=== PATIENT | female | born 1970 | race Caucasian/White ===

== ENCOUNTER 2016-11-09 05:37 | Inpatient (IN) | payer BC ==
--- NOTE | 2016-11-08 20:45 | PREOPHP ---
DATE OF ADMISSION: 11/09/2016 She is to be admitted tomorrow, November 09, 2016 for a total abdominal hysterectomy. CHIEF COMPLAINT: Chronic pelvic pain, pelvic pressure. HISTORY OF PRESENT ILLNESS: This is a 46-year-old female, 3, para 3, has been complaining of pelvic pressure. She was found to have multiple uterine fibroids causing the problem. She is brought in for a total abdominal hysterectomy under a general anesthesia. The procedure was discussed with the patient in the office, and informed consent was obtained. The alternatives to treatment, the benefits from this operation, the risks and possible complications were discussed in detail. All of her questions were answered to her satisfaction, and she signed the appropriate surgical informed consent. The patient was made aware that she is not going to be able to conceive again and will not have a period ever again. PAST MEDICAL HISTORY: The patient denies any medical problems, including diabetes, hypertension, cardiovascular disease, liver disease, renal disease, neurological disease or thyroid problems. She had a left breast biopsy of a cyst several years ago. ALLERGIES: SHE HAS NO KNOWN ALLERGIES. REVIEW OF SYSTEMS: A 12-point review of systems is noncontributory. FAMILY HISTORY: Noncontributory. OBSTETRICAL HISTORY: The patient had 3 pregnancies and had 3 vaginal deliveries. PHYSICAL EXAMINATION: GENERAL APPEARANCE: Well developed and nourished, in no distress. Alert and oriented x3 with a height of 5 feet 4 inches and a weight of 200 pounds. The BMI is 35. VITAL SIGNS: Show the temperature to be 98, blood pressure 138/84, respirations 16 per minute, pulse is 72 per minute and regular. HEENT: Within normal limits. Pupils are PERRLA. NECK: Supple. The thyroid is not palpable. There is no lymphadenopathy. BREASTS: Show no masses or lumps. LUNGS: Are clear to percussion and auscultation. HEART: Normal sinus rhythm, without a murmur. ABDOMEN: Soft, obese, nontender. No organomegaly is present. PELVIC: Normal external genitalia. The vagina is normal. The cervix is normal, without lesions. The uterus is enlarged, with multiple fibroids and size of about 14 weeks, irregular, hard. Adnexa: No adnexal mass. LOWER EXTREMITIES: Examination within normal limits. NEUROLOGICAL: Examination is also normal. IMPRESSION: Multiple uterine fibroids, chronic pelvic pain. PLAN: Patient is to be admitted tomorrow, 11/09/2016 for a GLORIA. Dictated By: Ion Yin MD /lizz/maurizio /Document#: [id number] CC: Nate Elena MD;*End*
[2016-11-09] VITALS (23 sets, daily range): BP systolic 110–137; BP diastolic 60–86; PULSE 62–68; RESP 8–20; Ht 162.6 cm; Wt 92.7 kg
[~2016-11-09] VITALS: Ht 162.6 cm; Wt 92.7 kg
[2016-11-09] MEDS ORDERED: VASOPRESSIN 20 UNITS INJ ONE (06:55)
[2016-11-09] MEDS ORDERED: SODIUM CL BACTERIOSTATIC 30 ML INJ ONE (06:58)
[2016-11-09] MEDS ORDERED: METOCLOPRAMIDE 10 MG INJ IV PRN (07:30)
[2016-11-09] MEDS ORDERED: LABETALOL HCL 20MG INJ IV PRN (07:30)
[2016-11-09] MEDS ORDERED: OXYCODONE/ACETAMINOPHEN (5/325) TAB PO PRN ×3 (07:30→10:00)
[2016-11-09] MEDS ORDERED: HYDROmorphONE (0.2 MG/ML) 10ML SYG IV PRN ×2 (07:30)
[2016-11-09] MEDS ORDERED: ONDANSETRON 4 MG INJ IV PRN ×3 (07:30→10:00)
[2016-11-09] MEDS ORDERED: MIDAZOLAM 1 MG/ML 2 ML INJ IV PRN (07:30)
[2016-11-09] MEDS ORDERED: MEPERIDINE 25 MG INJ IV PRN (07:30)
[2016-11-09] MEDS ORDERED: EPHEDrine SULFATE 50 MG/5 ML SYG IV PRN (07:30)
[2016-11-09] MEDS ORDERED: DIPHENHYDRAMINE 50 MG INJ IV PRN ×2 (07:30→09:00)
[2016-11-09] MEDS ORDERED: hydrALAzine 20 MG INJ IV PRN (07:30)
[2016-11-09] MEDS ORDERED: FENTAnyl 50 MCG/ML VIAL IV PRN ×3 (07:30)
[2016-11-09] MEDS ORDERED: SUCCINYLCHOLINE CHLORIDE 100 MG/5 ML SYG IV ONE (07:40)
[2016-11-09] MEDS ORDERED: GLYCOPYRROLATE 0.4 MG INJ ONE ×3 (07:40→08:42)
[2016-11-09] MEDS ORDERED: LIDOCAINE 2% (SDV) 5 ML INJ ONE (07:40)
[2016-11-09] MEDS ORDERED: NEOSTIGMINE 3 MG/3 ML SYRINGE ONE ×2 (07:40→08:42)
[2016-11-09] MEDS ORDERED: PROPOFOL 20 ML ONE (07:40)
[2016-11-09] MEDS ORDERED: ROCURONIUM 50 MG INJ ONE (07:40)
[2016-11-09] MEDS ORDERED: BUPIVACAINE 0.5% (SDV) 30 ML INJ ONE (07:43)
[2016-11-09] MEDS ORDERED: CEFAZOLIN 1 GM INJ ONE (08:41)
[2016-11-09] MEDS ORDERED: METOCLOPRAMIDE 10 MG INJ ONE (08:42)
[2016-11-09] MEDS ORDERED: ONDANSETRON 4 MG INJ ONE (08:42)
[2016-11-09] MEDS ORDERED: HYDROmorphONE 1 MG/ML SYG IV PRN ×2 (09:00)
[2016-11-09] MEDS ORDERED: FENTAnyl 2MCG/ML-ROPIV 0.2% 100 ML BAG EPI SCH (09:00)
[2016-11-09] MEDS ORDERED: NALOXONE (0.4 MG/ML) INJ IV PRN ×2 (09:00→10:00)
[2016-11-09] MEDS ORDERED: morphine SULFATE/PF (10 MG/10 ML) INJ ONE (09:19)
[2016-11-09] MEDS: LACTATED RINGER'S 1,000 ML IV SCH ×2 (09:59→20:19)
[2016-11-09] MEDS ORDERED: CEFAZOLIN 1 GM/50 ML (PMX) 50 ML IVPB SCH (10:00)
[2016-11-09] MEDS ORDERED: IBUPROFEN 600 MG TAB PO PRN (10:00)
[2016-11-09] MEDS ORDERED: morphine SULFATE/PF (10 MG/10 ML) INJ EPI ONE (10:00)
--- NOTE | 2016-11-09 10:13 | QN ---
Documentation Comment Preoperative diagnosis: Multiple uterine fibroids wit pelvic pain. Postop diagnosis: same Surgeon: Dr Lara Sign Erector: Dr Elena Anesthesia: Dr Keys Complications : none EBL:150 c c Specimen:Uterus and fibroids AMIRA KELLOGG MD Nov 09, 2016 10:13
[2016-11-09] MEDS: HYDROmorphONE (0.2 MG/ML) 10ML SYG IV PRN ×2 (10:32→10:44)
[2016-11-09] MEDS ORDERED: ACETAMINOPHEN 1000MG/100ML IV 100 ML ONE (10:33)
[2016-11-09] MEDS: ACETAMINOPHEN 1000MG/100ML IV 100 ML IVPB SCH ×3 (10:41→22:31)
[2016-11-09] MEDS: CEFAZOLIN 1 GM/50 ML (PMX) 50 ML IVPB SCH ×2 (13:23→23:12)
--- NOTE | 2016-11-09 15:47 | OPR ---
DATE OF OPERATION: 11/09/2016 PREOPERATIVE DIAGNOSIS: Multiple uterine fibroids. Chronic pelvis pain. POSTOPERATIVE DIAGNOSIS: Same as above. OPERATIVE PROCEDURE: Total abdominal hysterectomy. SURGEON: Dr. Ion Yin. CAR DETAILER: Dr. Nate Elena ANESTHESIOLOGIST: Dr. Keys. ANESTHESIA: Epidural and general, bilaterally. ESTIMATED BLOOD LOSS: 150 cc. COMPLICATIONS: None. SPECIMENS: The uterus was sent to pathology. Pictures were taken for documentation. PROCEDURE AND FINDINGS: With the patient under general and epidural anesthesia, she was laid on the table in the dorsal recumbent position. Her abdomen was prepped with Chloraprep and the vagina with Betadine and a Lang catheter was inserted. Then she was draped in the usual sterile fashion. A Pfannenstiel incision was then carried through all the layers of the abdominal wall. Once in the abdomen, an enlarged uterus with several fibroids of benign aspect were found. The ovaries and tubes were normal. The hysterectomy then was carried out. It started with the LigaSure clamp on the round ligament and cut in it. Anteriorly the broad ligament was opened. The upper pedicle consisting of the tube utero-ovarian ligament was cauterized with a LigaSure and cut. Good hemostasis was obtained. The same was done on the contralateral side. The bladder was pushed away with a clean moist sponge stick until the endopelvic fascia could be seen anteriorly. Then it was impossible to proceed with the above operation given the lack of room, thus a myomectomy was planned and carried out. The fibroids were anteriorly and impeding the good dissection, were infiltrated with diluted vasopressin. Then they were removed from the body of the uterus. Then the hysterectomy was carried out in the usual manner by ligated both uterine pedicles. The cardinal ligaments were identified, clamped with straight Olivia clamps, cut, and sutured with 0 Vicryl also. Finally, the uterosacral ligaments were clamped with curved Olivia clamps, cut, and sutured with 0 Vicryl. The vagina was entered on the right side and the incision extended with scissors and the specimen removed and sent to pathology. The vagina was closed with [id number] sutures of 0 Vicryl, obtaining good hemostasis. The pelvis was profusely washed with warm saline. There were no apparent bleeders. The saline was suctioned out. All the packing was removed. The first count of sponges was correct. The abdomen was closed in layers starting with the peritoneum with a continuous stitch of 0 Chromic catgut. The fascia was closed with a continuous stitch of number 1 Vicryl. Finally, the edges of the skin were brought together with absorbable kathleen. Sterile pressure dressing was applied. The patient was taken to the recovery room, all her vital signs stable. EBL was 150 cc. Needle, sponge, and instrument count at the end of the procedure was correct twice. Dictated By: Ion Yin MD /lizz/ /Document#: [id number]
[2016-11-10] VITALS: BP 123/59; RESP 18
[2016-11-10] MEDS: ACETAMINOPHEN 1000MG/100ML IV 100 ML IVPB SCH ×5 (04:00→21:52)
[2016-11-10 04:02] VITALS: BP 122/67; RESP 18
[2016-11-10 05:27] LABS: BASOPHILS % 0.1 % (0.0-2.0); EOSINOPHILS % 0.3 % (0.0-7.0); HEMATOCRIT 37.3 % (37.0-47.0); HEMOGLOBIN 12.5 g/dl (12.0-16.0); LYMPHOCYTES % 26.4 % (15.0-51.0); MEAN CORPUSCULAR HEMOGLOBIN 28.8 pg (29.0-33.0); MEAN CORPUSCULAR HGB CONC 33.5 g/dl (32.0-37.0); MEAN CORPUSCULAR VOLUME 85.9 fl (82.0-101.0); MONOCYTE # 0.7 10^3/ul (0.3-0.9); MONOCYTES % 9.1 % (0.0-11.0); NEUTROPHIL # 4.8 10^3/ul (1.6-7.5); NEUTROPHILS % 63.8 % (39.0-77.0); PLATELET COUNT 269 10^3/UL (140-415); RED BLOOD COUNT 4.34 10^6/ul (4.20-5.40); RED CELL DISTRIBUTION WIDTH 13.8 % (11.5-14.5); WHITE BLOOD COUNT 7.6 10^3/ul (4.8-10.8)
[2016-11-10] MEDS: CEFAZOLIN 1 GM/50 ML (PMX) 50 ML IVPB SCH ×2 (05:36→05:39)
[2016-11-10] MEDS: LACTATED RINGER'S 1,000 ML IV SCH ×2 (05:36→15:21)
[2016-11-10 05:58] LABS: CALCIUM 9.1 mg/dl (8.4-10.2); CREATININE 0.8 mg/dl (0.44-1.00); POTASSIUM 4.2 mmol/L (3.5-5.1)
[2016-11-10] MEDS ORDERED: PANTOPRAZOLE 40 MG INJ IV SCH (06:00)
[2016-11-10 08:16] VITALS: BP 105/57; RESP 19
--- NOTE | 2016-11-10 09:02 | PN ---
Date/Time of Note Date/Time of Note DATE: 11/10/16 TIME: 08:58 Assessment/Plan VTE Prophylaxis VTE Prophylaxis Intervention: ambulation, anti-embolic stocking, LMWH Lines/Catheters IV Catheter Type (from Nrsg): Peripheral IV Urinary Cath still in place: No Assessment/Plan Assessment/Plan Encourage ambulation and start Lovenox to prevent DVT/PE Cont'd Hospitalization Reason: Iv pain meds Subjective 24 Hr Interval Summary Free Text/Dictation Doing well,good pain control.Sitting up in bed eating breakfast. Exam/Review of Systems Vital Signs Vitals Vital Signs Date Time Temp Pulse Resp B/P Pulse Ox O2 Delivery O2 Flow Rate FiO2 11/10/16 08:16 98.0 56 19 105/57 98 11/10/16 04:02 Room Air 11/09/16 20:15 2.0 Intake and Output 11/09/16 11/09/16 11/10/16 15:00 23:00 07:00 Intake Total 1700 ml 1900 ml 1800 ml Output Total 750 ml 1100 ml 1400 ml Balance 950 ml 800 ml 400 ml Results Result Diagram: 11/10/16 0426 11/10/16 0426 Results 24 hrs Laboratory Tests Test 11/10/16 04:26 White Blood Count 7.6 Red Blood Count 4.34 Hemoglobin 12.5 Hematocrit 37.3 Mean Corpuscular Volume 85.9 Mean Corpuscular Hemoglobin 28.8 L Mean Corpuscular Hemoglobin Concent 33.5 Red Cell Distribution Width 13.8 Platelet Count 269 Mean Platelet Volume 9.0 Neutrophils % 63.8 Lymphocytes % 26.4 Monocytes % 9.1 Eosinophils % 0.3 Basophils % 0.1 Nucleated Red Blood Cells % 0.0 Neutrophils # 4.8 Lymphocytes # 2.0 Monocytes # 0.7 Eosinophils # 0.0 Basophils # 0.0 Nucleated Red Blood Cells # 0.0 Sodium Level 137 Potassium Level 4.2 Chloride Level 103 Carbon Dioxide Level 30 Anion Gap 8 Blood Urea Nitrogen 13 Creatinine 0.80 Glucose Level 92 Calcium Level 9.1 Medications Medications Current Medications Hydromorphone HCl (Dilaudid) 0.2 mg Q2H PRN IV PAIN LEVEL 1-5; Start 11/09/16 at 09:00 Hydromorphone HCl (Dilaudid) 0.4 mg Q2H PRN IV PAIN LEVEL 6-10; Start 11/09/16 at 09:00 Diphenhydramine HCl (Benadryl) 25 mg Q4H PRN IV PRURITUS; Start 11/09/16 at 09: 00 Ondansetron HCl (Zofran Inj) 4 mg Q6H PRN IV NAUSEA AND/OR VOMITING Last administered on 11/09/16 20:18; Admin Dose 4 MG; Start 11/09/16 at 09:00 Naloxone HCl (Narcan) 0.2 mg Q2M PRN IV FOR RESP RATE 8 OR LESS; Start at 09:00 Naloxone HCl 0.1 mg 0.1 mg Q2M PRN IV FOR RESP RATE 8 OR LESS; Start 11/09/16 at 10:00; Stop 11/10/16 at 09:59 Lactated Ringer's (Lr) 1,000 ml @ 100 mls/hr Q10H IV Last administered on 11/10 05:36; Admin Dose 100 MLS/HR; Start 11/09/16 at 09:59 Acetaminophen (Tylenol Tab) 650 mg Q4H PRN PO PAIN LEVEL 1-5; Start 11/10/16 at 12:00 Ibuprofen (Motrin) 600 mg Q8H PRN PO PAIN AND OR ELEVATED TEMP; Start 11/09/16 at 10:00; Status Future hold Ondansetron HCl (Zofran Inj) 4 mg Q6H PRN IV NAUSEA AND/OR VOMITING Last administered on 11/09/16 13:24; Admin Dose 4 MG; Start 11/09/16 at 10:00 Oxycodone/ Acetaminophen 2 tab 2 tab Q4H PRN PO PAIN; Start 11/09/16 at 10:00 Acetaminophen (Ofirmev 1000mg/ 100ml Iv) 100 ml @ 400 mls/hr Q6H IVPB Last administered on 11/10/16 04:45; Admin Dose 400 MLS/HR; Start 11/09/16 at 10:00 Pantoprazole (Protonix Iv) 40 mg DAILY@06 IV Last administered on 11/10/16 05: 36; Admin Dose 40 MG; Start 11/10/16 at 06:00 Ketorolac Tromethamine (Toradol) 30 mg Q6H PRN IV PAIN; Start 11/09/16 at 13:30 ; Stop 11/12/16 at 13:29 AMIRA KELLOGG MD Nov 10, 2016 09:02
[2016-11-10] MEDS: ENOXAPARIN 40 MG/0.4 ML SYG SC SCH (09:28)
[2016-11-10] MEDS ORDERED: ACETAMINOPHEN 325 MG TAB PO PRN (12:00)
[2016-11-10] MEDS: KETOROLAC 30 MG INJ IV PRN (12:58)
[2016-11-10 14:00] VITALS: BP 115/51; RESP 19
[2016-11-10 19:40] VITALS: BP 147/75; RESP 18
[2016-11-10 20:00] VITALS: BP 129/70; RESP 18
[2016-11-11] MEDS: LACTATED RINGER'S 1,000 ML IV SCH ×3 (00:31→11:24)
[2016-11-11] MEDS: ACETAMINOPHEN 1000MG/100ML IV 100 ML IVPB SCH ×4 (04:29→22:06)
[2016-11-11 07:43] VITALS: BP_SYST 121; BP_SYST 159; BP_DIAS 59; RESP 19
[2016-11-11] MEDS: FAMOTIDINE 20 MG INJ IV SCH ×2 (08:29→20:50)
[2016-11-11] MEDS: KETOROLAC 30 MG INJ IV PRN (08:29)
[2016-11-11] MEDS: ENOXAPARIN 40 MG/0.4 ML SYG SC SCH (08:47)
--- NOTE | 2016-11-11 09:59 | PN ---
Date/Time of Note Date/Time of Note DATE: 11/11/16 TIME: 09:57 Assessment/Plan VTE Prophylaxis VTE Prophylaxis Intervention: ambulation, anti-embolic stocking, LMWH Lines/Catheters IV Catheter Type (from Nrsg): Peripheral IV Urinary Cath still in place: No Assessment/Plan Assessment/Plan Improving,probable discharge tomorrow Cont'd Hospitalization Reason: Still requires IV meds Subjective 24 Hr Interval Summary Free Text/Dictation Afebrile.Still requires IV pain meds.Beginning to pass flatus. Exam/Review of Systems Vital Signs Vitals Vital Signs Date Time Temp Pulse Resp B/P Pulse Ox O2 Delivery O2 Flow Rate FiO2 11/11/16 07:43 98.0 61 19 159/59 98 11/10/16 04:02 Room Air 11/09/16 20:15 2.0 Intake and Output 11/10/16 11/10/16 11/11/16 15:00 23:00 07:00 Intake Total 100 ml 2290 ml 1450 ml Output Total 700 ml Balance 100 ml 1590 ml 1450 ml Results Result Diagram: 11/10/16 0426 11/10/16 0426 Medications Medications Current Medications Hydromorphone HCl (Dilaudid) 0.2 mg Q2H PRN IV PAIN LEVEL 1-5; Start 11/09/16 at 09:00 Hydromorphone HCl (Dilaudid) 0.4 mg Q2H PRN IV PAIN LEVEL 6-10; Start 11/09/16 at 09:00 Diphenhydramine HCl (Benadryl) 25 mg Q4H PRN IV PRURITUS; Start 11/09/16 at 09: 00 Naloxone HCl 0.2 mg 0.2 mg Q2M PRN IV FOR RESP RATE 8 OR LESS; Start 11/09/16 at 09:00 Lactated Ringer's (Lr) 1,000 ml @ 100 mls/hr Q10H IV Last administered on 11/11t 00:31; Admin Dose 100 MLS/HR; Start 11/09/16 at 09:59 Acetaminophen (Tylenol Tab) 650 mg Q4H PRN PO PAIN LEVEL 1-5; Start 11/10/16 at 12:00 Ibuprofen (Motrin) 600 mg Q8H PRN PO PAIN AND OR ELEVATED TEMP; Start 11/09/16 at 10:00; Status Future hold Ondansetron HCl (Zofran Inj) 4 mg Q6H PRN IV NAUSEA AND/OR VOMITING Last administered on 11/09/16 13:24; Admin Dose 4 MG; Start 11/09/16 at 10:00 Oxycodone/ Acetaminophen 2 tab 2 tab Q4H PRN PO PAIN Last administered on 00:28; Admin Dose 2 TAB; Start 11/09/16 at 10:00 Acetaminophen (Ofirmev 1000mg/ 100ml Iv) 100 ml @ 400 mls/hr Q6H IVPB Last administered on 11/11/16 04:29; Admin Dose 400 MLS/HR; Start 11/09/16 at 10:00 Ketorolac Tromethamine (Toradol) 30 mg Q6H PRN IV PAIN Last administered on 08:29; Admin Dose 30 MG; Start 11/09/16 at 13:30; Stop 11/12/16 at 13:29 Enoxaparin Sodium (Lovenox) 40 mg DAILY SC Last administered on 11/11/16 08:47 ; Admin Dose 40 MG; Start 11/10/16 at 09:00 Famotidine (Pepcid Iv) 20 mg BID IV Last administered on 11/11/16 08:29; Admin Dose 20 MG; Start 11/11/16 at 09:00 AMIRA KELLOGG MD Nov 11, 2016 09:59
[2016-11-11 14:00] VITALS: BP 121/62; RESP 18
[2016-11-11 21:14] VITALS: BP 139/70; RESP 21
[2016-11-12 01:30] VITALS: BP 128/81; RESP 22
[2016-11-12] MEDS: ACETAMINOPHEN 1000MG/100ML IV 100 ML IVPB SCH ×3 (03:50→16:23)
[2016-11-12] MEDS: KETOROLAC 30 MG INJ IV PRN (06:16)
[2016-11-12 07:53] VITALS: BP 141/72; RESP 16
[2016-11-12] MEDS: FAMOTIDINE 20 MG INJ IV SCH (09:08)
[2016-11-12] MEDS: ENOXAPARIN 40 MG/0.4 ML SYG SC SCH (09:09)
[2016-11-12 14:00] VITALS: BP 137/80; RESP 16
--- NOTE | 2016-11-12 18:10 | DS ---
Date/Time of Note Date/Time of Note DATE: 11/12/16 TIME: 18:07 Discharge Summary Admission/Discharge Info Admit Date/Time Nov 09, 2016 at 05:37 Discharge Date/Time 11/12/16 1800 Discharge Diagnosis multiple uterine fibroids chronic pelvic pain Patient Condition: Stable Consults none Procedures GLORIA Hx of Present Illness admitted for GLORIA for fibroids Hospital Course unevenful had b.m urination ok no significant vaginal bleeding Follow-up Plan 2weeks Primary Care Provider Nicky Burnette MD Time spent on discharge: < 30 minutes SD WILEY MD Nov 12, 2016 18:10
--- NOTE | 2016-11-12 18:12 | PD.PPDC ---
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
[2016-11-13] MEDS ORDERED: PANTOPRAZOLE (EC) 40 MG TAB PO SCH (06:00)
== END 2016-11-12 20:24 | disposition home or self-care (01) | DRG 743 ==
LOC: REC 05:37 → MS1 10:50
PROVIDERS: ADMIT Specialist; ATTEND Specialist
PROC: 0UTC0ZZ Resection of Cervix, Open Approach (ICD-10-PCS; 2016-11-09)
PROC: 0UT90ZZ Resection of Uterus, Open Approach (ICD-10-PCS; principal; 2016-11-09 07:30)
DX: D25.1 Intramural leiomyoma of uterus (principal); D25.2 Subserosal leiomyoma of uterus; R10.2 Pelvic and perineal pain; G89.29 Other chronic pain
CPT/HCPCS: 80048; 85025; 86850; 86900; 86901; 88305; J0131; J0690; J1170; J1650; J1885; J2175; J2274; J2405; J2710; J2765; J7120; J7999